=== PATIENT | male | born 1955 | race Caucasian/White ===

== ENCOUNTER 2017-01-14 10:39 | Emergency (ER) | payer MEDICARE, OTHER ==
[2017-01-14 11:27] VITALS: BP 151/74; PULSE 76; RESP 18; TEMP 97.9
--- NOTE | 2017-01-14 11:49 | ED ---
General Adult HPI - General Chief complaint: Fall Stated complaint: LEFT FOOT AND CHEST INJURY FROM FALL Time Seen by Provider: 01/14/17 11:31 Source: patient, RN notes reviewed Mode of arrival: wheelchair Limitations: no limitations - Related Data Home Medications Medication Instructions Recorded Confirmed Aspirin 81 mg PO DAILY 01/18/14 01/18/14 Atorvastatin [Lipitor] 40 mg PO DAILY 01/18/14 01/18/14 HYDROcodone/APAP 10-325MG [[place] 1 tab PO DIRECTED 01/18/14 01/18/14 10-325] Lansoprazole [Prevacid] 30 mg PO DAILY 01/18/14 01/18/14 oxyCODONE HCL [OxyCONTIN] 60 mg PO BID 01/18/14 01/18/14 Allergies Allergy/AdvReac Type Severity Reaction Status Date / Time No Known Allergies Allergy Verified 01/14/17 11:27 Review of Systems ROS Statement: Those systems with pertinent positive or pertinent negative responses have been documented in the HPI. Review of systems no headache or visual acuity changes denies any neck pain. He has chronic back pain. Has discomfort to his right anterior rib cage with coughing. No abdominal pain. Denies nausea vomiting. No difficulty with bowel movements or urination. The other pain is to his left great toe area. All systems reviewed. Past medical problems BPH, he sustained an injury that led to multiple surgery surgeries afterwards. He also has a history of angina. Takes Doxy code own and [place] for breakthrough pain. He sees Dr. Montelongo for chronic pain management. The patient's surgeries include femur, hip, jaw and laminectomies. Patient's also had a cardiac cath without stenting. Denies ALLERGIES does smoke strongly encouraged to stop denies alcohol use. ROS Other: All systems not noted in ROS Statement are negative. Past Medical History Past Medical History: Hyperlipidemia Additional Past Medical History / Comment(s): chronic back pain, bilateral chronic knee pain History of Any Multi-Drug Resistant Organisms: None Reported Past Surgical History: Orthopedic Surgery Past Anesthesia/Blood Transfusion Reactions: No Reported Reaction Past Psychological History: No Psychological Hx Reported Smoking Status: Current every day smoker Past Alcohol Use History: None Reported Past Drug Use History: None Reported General Exam - General Exam Comments Initial Comments: General: The patient is awake and alert, complains of discomfort to his right anterior rib cage in his left great toe. Vital signs temp 97.9 pulse 76 respiratory rate 18 pulse ox 99% room air blood pressure 151/74 Eye: Pupils are equal, round and reactive to light, extra-ocular movements are intact ; there is normal conjunctiva bilaterally. No signs of icterus. Ears, nose, mouth and throat: There are moist mucous membranes and no oral lesions. Neck: The neck is supple, no neck pain caused by this fall. Cardiovascular: There is a regular rate and rhythm. No murmur, rub or gallop is appreciated. Respiratory: Lungs are clear to auscultation, respirations are non-labored, breath sounds are equal. No wheezes, stridor, rales, or rhonchi. Gastrointestinal: Soft, non-distended, non-tender abdomen without masses or organomegaly noted. There is no rebound or guarding present. No CVA tenderness. Bowel sounds are unremarkable. Back: Chronic back pain with multiple disc problems from before.. Musculoskeletal: Pain to the right mid anterior clavicular line lower chest wall. Mild discomfort with palpation increases with coughing. Lungs are clear to auscultation. Neurological: No neuro deficits appreciated. Skin: Skin is warm and dry and no rashes or lesions are noted. Limitations: no limitations Course Vital Signs 01/14/17 11:25 Temperature 97.9 F Pulse Rate 76 Respiratory 18 Rate Blood Pressure 151/74 O2 Sat by Pulse 99 Oximetry Medical Decision Making - Medical Decision Making X-ray of the left foot was done and reviewed radiologist his final impression is ;no fracture, dislocation or other acute osseous lesion is seen. There is a small Achilles spur seen arising from the calcaneus. Impression no acute osseous lesion. As read by Dr. Gayle X-ray of the chest and right rib series is done and reviewed by radiologist's his final impression is ;no acute intrathoracic abnormality. No evidence of displaced rib fracture at this time. As read by Dr. Gayle The findings per radiologist reviewed with the patient. The patient has pain medication including [place] and oxycodone at home. Told to apply ice rest elevated follow-up with family physician as needed. Disposition Clinical Impression: Contusion of rib on right side, Contusion of foot including toes Disposition: HOME SELF-CARE Condition: Fair Instructions: Foot Contusion (ED), Contusion in Adults (ED), Rib Contusion (ED) Additional Instructions: Apply ice to any areas that are injured. Use home pain medications. Use ibuprofen for breakthrough pain. Follow-up with family doctor Referrals: Evelia Gillespie MD [Primary Care Provider] - 1-2 days Time of Disposition: 12:37
--- NOTE | 2017-01-14 12:21 | XR ---
EXAMINATION TYPE: XR ribs RT w pa chest x-ray , 5 VIEWS DATE OF EXAM ORDERED: 01/14/2017 HISTORY: Pain. COMPARISON: None. FINDINGS: The lungs are clear. Pleural spaces are clear. Heart size is normal. No displaced rib frac ture is seen. There is no evidence of pneumothorax. IMPRESSION: 1. NO ACUTE INTRATHORACIC ABNORMALITY. 2. I DO NOT SEE EVIDENCE OF A DISPLACED RIB FRACTURE AT THIS TIME.
--- NOTE | 2017-01-14 12:22 | XR ---
EXAMINATION TYPE: XR foot complete LT , 3 VIEWS DATE OF EXAM ORDERED: 01/14/2017 HISTORY: Pain. COMPARISON: None. FINDINGS: No fracture, dislocation or other acute osseous lesion is seen. There is a small Achilles spur seen arising from the calcaneus. IMPRESSION: NO ACUTE OSSEOUS LESION.
== END 2017-01-14 12:58 | disposition home or self-care (01) ==
LOC: EC 10:39
DX: S90.32XA Contusion of left foot, initial encounter (principal); S20.211A Contusion of right front wall of thorax, initial encounter; M77.32 Calcaneal spur, left foot; G89.29 Other chronic pain; E78.5 Hyperlipidemia, unspecified; F17.200 Nicotine dependence, unspecified, uncomplicated; Z79.82 Long term (current) use of aspirin; Z79.891 Long term (current) use of opiate analgesic; Z79.899 Other long term (current) drug therapy; W18.09XA Striking against other object with subsequent fall, initial encounter
CPT/HCPCS: 99283

== ENCOUNTER → 2017-11-09 | Outpatient (CLI) | payer MEDICARE, OTHER ==
--- NOTE | 2017-11-09 10:04 | US ---
EXAMINATION TYPE: US abdomen complete DATE OF EXAM: 11/09/2017 COMPARISON: NONE CLINICAL HISTORY: R10.9Unspecified abdominal pain R31.9Hematuri; patient stated has herniated discs i n spine; right flank pain with attention to gallbladder and right ureter per order. EXAM MEASUREMENTS: Liver Length: 15.5 cm Gallbladder Wall: 0.2 cm CBD: 0.5 cm Spleen: 11.9 cm Right Kidney: 11.3 x 6.1 x 4.7 cm Left Kidney: 10.9 x 5.6 x 5.6 cm Pancreas: Partially obscured by overlying bowel gas Liver: no masses seen; periportal wall brightness noted Gallbladder: wnl Evidence for sonographic Cheema's sign: no CBD: wnl Spleen: wnl Right Kidney: No hydronephrosis or masses seen Left Kidney: No hydronephrosis or masses seen Upper IVC: wnl Abd Aorta: upper aorta size is = 3.1cm A/P (abnormal upper as > 3.0 normal parameter); intimal wall changes noted distally IMPRESSION: 1. 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 2. Suboptimal visualization of the pancreas secondary to overlying bowel gas. 2. No evidence of right-sided hydronephrosis, nephrolithiasis or sonographic evidence of cholelithias is/acute cholecystitis.
== END | disposition home or self-care (01) ==
LOC: RADUSWWP 08:09
PROVIDERS: ATTEND Family Medicine
DX: I77.819 Aortic ectasia, unspecified site (principal); R31.9 Hematuria, unspecified
CPT/HCPCS: 76700

== ENCOUNTER 2017-11-29 21:40 | Emergency (ER) | payer MEDICARE, OTHER ==
[2017-11-29 21:49] VITALS: RESP 18
[2017-11-29 22:52] LABS: Basophils % (A) 0 %; Eosinophils # (A) 0.1 k/uL (0-0.7); Eosinophils % (A) 1 %; HCT 48.9 % (39.0-53.0); HGB 15.9 gm/dL (13.0-17.5); Lymphocytes # (A) 1.8 k/uL (1.0-4.8); Lymphocytes % (A) 13 %; MCH 29.8 pg (25.0-35.0); MCHC 32.5 g/dL (31.0-37.0); MCV 91.6 fL (80.0-100.0); Monocytes # (A) 0.4 k/uL (0-1.0); Monocytes % (A) 3 %; Neutrophils # (A) 11.3 k/uL (1.3-7.7); Neutrophils % (A) 83 %; Platelet Count 250 k/uL (150-450); RBC 5.34 m/uL (4.30-5.90); RDW 12.9 % (11.5-15.5); WBC 13.5 k/uL (3.8-10.6)
[2017-11-29 23:01] LABS: ALT 37 U/L (21-72); AST 24 U/L (17-59); Albumin 4.2 g/dL (3.5-5.0); Alkaline Phosphatase 89 U/L (38-126); Anion Gap 10 mmol/L; Blood Urea Nitrogen 22 mg/dL (9-20); Calcium 9.5 mg/dL (8.4-10.2); Carbon Dioxide 25 mmol/L (22-30); Chloride 104 mmol/L (98-107); Glucose 113 mg/dL (74-99); Magnesium 2.1 mg/dL (1.6-2.3); Potassium 4.3 mmol/L (3.5-5.1); Sodium 139 mmol/L (137-145); Total Bilirubin 0.3 mg/dL (0.2-1.3); Total Protein 6.6 g/dL (6.3-8.2)
[2017-11-29 23:05] LABS: Partial Thromboplastin Time 24.6 sec (22.0-30.0); Prothrombin Time 9.5 sec (9.0-12.0)
[2017-11-29 23:11] LABS: Creatine Kinase 51 U/L (55-170)
[2017-11-29] MEDS ORDERED: GLUCAGON 1 MG/ML VIAL IVP STA (23:18)
[2017-11-29] MEDS ORDERED: MAG HYDROX/AL HYDROX/SIMETH 30 ML, HYOSCYAMINE ELIXIR 10 ML, CIMETIDINE HCL 300 MG, LID... PO ONE ×4 (23:19)
[2017-11-29 23:23] LABS: Creatine Kinase MB 0.7 ng/mL (0.0-2.4); Troponin I <0.012 ng/mL (0.000-0.034)
--- NOTE | 2017-11-29 23:46 | XR ---
EXAMINATION TYPE: XR chest 2V DATE OF EXAM: 11/29/2017 COMPARISON: 01/14/2017 HISTORY: Chest pain TECHNIQUE: Frontal and lateral views of the chest are obtained. FINDINGS: There is no heart failure nor confluent pneumonic infiltrate. Costophrenic angles are darius r. Thoracic aorta is atheromatous. Bony thorax is intact. IMPRESSION: No active cardiopulmonary disease. No change.
--- NOTE | 2017-11-30 00:17 | ED ---
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 He had some stress test and now a headache no and now for the cardiology investigations done months ago. Then he was eating some vegetables and he feels the vegetables got stuck in his esophagus he was nauseous he was trying to drop his complaining about term midsternal pain he feels is from his GI. Review of system is unremarkable otherwise - Related Data Home Medications Medication Instructions Recorded Confirmed HYDROcodone/APAP 10-325MG [[place] 1 tab PO TID PRN 01/18/14 11/29/17 10-325] Lansoprazole [Prevacid] 30 mg PO DAILY 01/18/14 11/29/17 oxyCODONE HCL [OxyCONTIN] 20 mg PO TID 01/18/14 11/29/17 Aspirin EC [Ecotrin] 162.5 mg PO DAILY 11/29/17 11/29/17 Cholecalciferol [Vitamin D3] 1,000 unit PO DAILY 11/29/17 11/29/17 Cyanocobalamin [Vitamin B-12] 500 mcg PO DAILY 11/29/17 11/29/17 Dutasteride [Avodart] 0.5 mg PO HS 11/29/17 11/29/17 Multivitamins, Thera [Multivitamin 1 tab PO DAILY 11/29/17 11/29/17 (formulary)] Tamsulosin [Flomax] 0.4 mg PO HS 11/29/17 11/29/17 Allergies Allergy/AdvReac Type Severity Reaction Status Date / Time atorvastatin [From Lipitor] Allergy Swelling Verified 11/29/17 22:59 Review of Systems ROS Statement: Those systems with pertinent positive or pertinent negative responses have been documented in the HPI. ROS Other: All systems not noted in ROS Statement are negative. EKG Findings - EKG Comments: EKG Findings:: EKG is a normal sinus ventricular rate 68 HI interval is 176 QRS duration is 94 QT/QTc is 402/427 review of this EKG does not reveal any ST elevation or ST depression Past Medical History Past Medical History: Hyperlipidemia, Vascular Disorder Additional Past Medical History / Comment(s): chronic back pain, bilateral chronic knee pain, heart blockage History of Any Multi-Drug Resistant Organisms: None Reported Past Surgical History: Heart Catheterization, Orthopedic Surgery Past Anesthesia/Blood Transfusion Reactions: No Reported Reaction Past Psychological History: No Psychological Hx Reported Smoking Status: Current every day smoker Past Alcohol Use History: None Reported Past Drug Use History: None Reported General Exam - General Exam Comments Initial Comments: General: The patient is awake and alert, in no distress, and does not appear acutely ill. Skin: Skin is warm and dry and no rashes or lesions are noted. Eye: Pupils are equal, round and reactive to light, extra-ocular movements are intact; there is normal conjunctiva bilaterally. Ears, nose, mouth and throat: There are moist mucous membranes and no oral lesions. Neck: The neck is supple, there is no tenderness or JVD. Cardiovascular: There is a regular rate and rhythm. No murmur, rub or gallop is appreciated. Respiratory: To auscultation bilateral, no wheezing no rhonchi no distress respiratory chester noticed Gastrointestinal: Soft, non-distended, non-tender abdomen without masses or organomegaly noted. There is no rebound or guarding present. Bowel sounds are unremarkable. Back: There is no tenderness to palpation in the midline. There is no obvious deformity. Musculoskeletal: Normal ROM, no tenderness, There is no pedal edema. There is no calf tenderness or swelling. No cords were appreciated. Neurological: CN II-XII intact, Cranial nerves III through XII are intact. There are no obvious motor or sensory deficits. Coordination appears grossly intact. Speech is normal. Psychiatric: Cooperative, appropriate mood & affect, normal judgment. Limitations: no limitations Course Vital Signs 11/29/17 11/29/17 11/29/17 21:45 22:10 23:39 Temperature 98.0 F Pulse Rate 76 81 Respiratory 18 18 18 Rate Blood Pressure 128/87 124/71 O2 Sat by Pulse 96 97 Oximetry (Reassessment term CBC, CMP, troponin, chest x-ray are unremarkable or free air under noticed noticed in the under the diaphragm or in the mediastinum however did give him a glucagon that helped him now he is able to drink and he wants to go home considering is a 62 and has a history of ischemic heart disease I recommended that we'll watch him overnight and have him see cardiology and he wants to go and he agrees to sign AMA and agrees to come back if symptoms get worse. I recommended that he stays overnight and if necessary will continue a EGD in the morning as well the patient's wants to go and he preferred to see his cardiology as outpatient Disposition Clinical Impression: Chest pain Disposition: Left Against Medical Advice Condition: Good Referrals: Evelia Gillespie MD [Primary Care Provider] - 1-2 days
[2017-11-30 00:23] VITALS: BP 125/57; PULSE 74; TEMP 97.6
== END 2017-11-30 00:21 | disposition left against medical advice (07) ==
LOC: EC 21:40
DX: R07.89 Other chest pain (principal); R51 Headache; R11.0 Nausea; G89.29 Other chronic pain; F17.200 Nicotine dependence, unspecified, uncomplicated; Z79.82 Long term (current) use of aspirin; Z79.891 Long term (current) use of opiate analgesic; Z79.899 Other long term (current) drug therapy; Z88.8 Allergy status to other drugs, medicaments and biological substances; Z95.5 Presence of coronary angioplasty implant and graft
CPT/HCPCS: 36415; 93005; 80053; 82550; 82553; 83735; 84484; 85025; 85610; 85730; 71046; 99285; 96374; J1610

== ENCOUNTER → 2019-03-26 | Outpatient (CLI) | payer MEDICARE ==
[2019-03-26 18:52] LABS: African American GFR (CKD) 109.4 (60.0-200.0); Non-African American GFR(CKD) 94.4 (60.0-200.0)
== END | disposition home or self-care (01) ==
LOC: LABWHC1 13:25
PROVIDERS: ATTEND Urology
DX: N40.1 Benign prostatic hyperplasia with lower urinary tract symptoms (principal)
CPT/HCPCS: 36415; 82565; 84153; 84520

== ENCOUNTER → 2019-03-26 | Outpatient (CLI) | payer OTHER | END | disposition home or self-care (01) | LOC: LABWHC1 13:22 | PROVIDERS: ATTEND Orthopaedic Surgery | DX: T56.91XA Toxic effect of unspecified metal, accidental (unintentional), initial encounter (principal) | CPT/HCPCS: 36415; 82495; 83018 ==

== ENCOUNTER → 2021-10-06 | Outpatient (CLI) | payer OTHER, MEDICARE ==
--- NOTE | 2021-10-07 06:05 | MR ---
EXAMINATION TYPE: MR shoulder RT wo con DATE OF EXAM: 10/06/2021 COMPARISON: None HISTORY: Shoulder pain Multiplanar multiecho imaging of the right shoulder without contrast. There is shoulder joint small effusion. There is fluid around the biceps tendon. Biceps tendon is int act. Subscapularis tendon shows some thickening and slight increased fluid signal. There is thickening and increased signal in the supraspinatus tendon over the greater tuberosity and probably the humeral head. I do not see a definite full-thickness tear. There is intrasubstance tears of the supraspinatus tendon. There is some spurring at the AC joint and mild impingement on the supr aspinatus tendon. The infraspinatus tendon is intact. The glenoid rehan appear intact. No fracture se en. IMPRESSION: Intrasubstance tears of the supraspinatus tendon. No full-thickness tear. There is intrasubstance tear of the subscapularis tendon. Very small joint effusion consistent with mild synovitis. Mild subacromial impingement.
== END | disposition home or self-care (01) ==
LOC: RADMRIMAIN 10:19
PROVIDERS: ATTEND Orthopaedic Surgery Sports Medicine
DX: M75.111 Incomplete rotator cuff tear or rupture of right shoulder, not specified as traumatic (principal); M25.811 Other specified joint disorders, right shoulder

== ENCOUNTER 2022-07-11 09:07 | Day surgery (SDC) | payer MEDICARE ==
[2022-07-05 15:07] VITALS: BMI 25.7
[~2022-07-11 09:07] MED LIST: LACTATED RINGERS 1,000 ML IV SCH; LIDOCAINE 1% (10MG/ML) FOR IV START INTRADERMA PRN
[2022-07-11 09:51] VITALS: TEMP 96.3
[2022-07-11] MEDS ORDERED: PROPOFOL 10 MG/ML 20 ML VIAL IV ONE (11:08)
--- NOTE | 2022-07-11 11:24 | P.PCN ---
Date of Procedure: 07/11/22 Procedure(s) Performed: BRIEF HISTORY: Patient is a 67-year-old pleasant white male scheduled for an elective colonoscopy as a part of screening for colon cancer/positive cologuard. PROCEDURE PERFORMED: Colonoscopy with snare polypectomy. PREOPERATIVE DIAGNOSIS: Screening for colon cancer/positive cologuard. IV sedation per Anesthesia. PROCEDURE: After informed consent was obtained, the patient, was brought into the endoscopy unit. IV sedation was administered by Anesthesia under continuous monitoring. Digital rectal examination was normal. Initially the Olympus CF-160 flexible video colonoscope was then inserted in the rectum, gradually advanced into the cecum without any difficulty. Careful examination was performed as the scope was gradually being withdrawn. Ileocecal valve and the appendiceal orifice were visualized and appeared normal. Prep was excellent. Mucosa of the cecum, ascending colon, appeared normal. In the transverse colon there was a 1 cm flat polyp removed by snare polyp rectum he. Rest of the transverse colon, descending colon, sigmoid colon, and rectum appeared normal. In the mid rectum there was a 1 cm polyp removed by snare polypectomy. Retroflexion was performed in the rectum and small internal hemorrhoids were seen. The patient tolerated the procedure well. IMPRESSION: 1 cm flat transverse colon polyp status post polypectomy 1 cm mid rectal polyp status post polypectomy Small internal hemorrhoids RECOMMENDATIONS: Findings of this examination were discussed with the patient as well as his family.. He was advised to follow with the biopsy results. If the biopsy reveals adenoma he can have a repeat colonoscopy in 3 years
[2022-07-11 11:45] VITALS: BP 113/60; PULSE 51; RESP 16
== END 2022-07-11 12:00 ==
LOC: ORWHC2ENDO 09:07
PROVIDERS: ATTEND Internal Medicine Gastroenterology
DX: D12.8 Benign neoplasm of rectum (principal); K64.8 Other hemorrhoids; E78.5 Hyperlipidemia, unspecified; K21.9 Gastro-esophageal reflux disease without esophagitis; N40.0 Benign prostatic hyperplasia without lower urinary tract symptoms; F17.200 Nicotine dependence, unspecified, uncomplicated; Z79.82 Long term (current) use of aspirin; Z79.899 Other long term (current) drug therapy; Z88.8 Allergy status to other drugs, medicaments and biological substances
CPT/HCPCS: 45385; J2704; 88305

== ENCOUNTER → 2023-11-14 | Outpatient (CLI) | payer MEDICARE ==
--- NOTE | 2023-11-14 12:46 | US ---
EXAMINATION TYPE: US prostate transrectal DATE OF EXAM: 11/14/2023 COMPARISON: NONE CLINICAL INDICATION: Male, 68 years old with history of N40.1 BENIGN PROSTATIC HYPERPLASIA WITH LOWER URIN; This examination was performed using the transrectal probe. EXAM MEASUREMENTS: Gland Size: 7.5 x 6.7 x 5.6 cm Volume: 149.4 ml Predicted PSA: 17.9 Actual PSA (if available):3.94 ng/mL Very heterogeneous prostate gland. Limited visibility of peripheral zone. Gland appears enlarged. Multiple anechoic areas seen in central zone. Anechoic area seen that appears to be on border of central/peripheral zone: 0.6 x 0.5 x 0.5 cm. IMPRESSION: 1. Significant prostatic glandular enlargement with compression of the peripheral zone. No definite p eripheral zone lesions seen. Anechoic cystic area at the junction of the central zone and peripheral zone appears benign. Predicted PSA = volume x 0.12 ng/ml Calculated Volume = 0.5236 x L x W x H
== END | disposition home or self-care (01) ==
LOC: RADUSWWP 10:31
PROVIDERS: ATTEND Urology
DX: N40.1 Benign prostatic hyperplasia with lower urinary tract symptoms (principal)
CPT/HCPCS: 76872

== ENCOUNTER → 2024-10-28 | Outpatient (CLI) | payer MEDICARE ==
--- NOTE | 2024-10-28 11:15 | US ---
EXAMINATION TYPE: US kidneys/renal and bladder DATE OF EXAM: 10/28/2024 COMPARISON: US 2018 CLINICAL INDICATION: Male, 69 years old with history of N40.1 BENIGN PROSTATIC HYPERPLASIA WITH LOWER URIN; BPH. Patient has issues urinating TECHNIQUE: Grayscale imaging of the bilateral kidneys and urinary bladder: FINDINGS: EXAM MEASUREMENTS: Right Kidney: 12.1 x 5.6 x 4.9 cm Left Kidney: 11.7 x 6.1 x 6.2 cm Post Void Residual Volume: 94.5 mL *Exam is limited due to gas. Right Kidney: No hydronephrosis or masses seen Left Kidney: Limited visibility. No hydronephrosis or masses seen Bladder: Appears anechoic Bilateral Jets seen: Yes Normal Post Void Residual: No Prostate appears large and lobulated in bladder imagin.0 x 6.5 x 6.6 cm. IMPRESSION: Prostate gland enlargement. [facility], , 10/28/2024 11:12 AM
== END | disposition home or self-care (01) ==
LOC: RADUSWWP 10:17
PROVIDERS: ATTEND Urology
DX: N40.1 Benign prostatic hyperplasia with lower urinary tract symptoms (principal); R35.0 Frequency of micturition
CPT/HCPCS: 76770